=== PATIENT | female | born 1955 | race Caucasian/White ===

== ENCOUNTER → 2017-07-29 | Outpatient (CLI) | payer BC ==
--- NOTE | 2017-07-29 15:30 | US ---
EXAMINATION TYPE: US thyroid st tissue head/neck DATE OF EXAM: 07/29/2017 COMPARISON: NONE CLINICAL HISTORY: E03.9 Hypothyroidism. Hypothyroidism, patient on medication for 20 years GLAND SIZE: Right Lobe: 4.1 x 1.5 x 1.5 cm Overall Parenchyma: heterogenous Left Lobe: 3.7 x 1.3 x 1.1 cm Overall Parenchyma: heterogeneous Isthmus Thickness: 0.2 cm NODULES RIGHT: # of nodules measured on right: 0 LEFT: # of nodules measured on left: 0 ISTHMUS: # of nodules measured in the isthmus: 0 Bilateral neck scanned, lymph node left neck that is nonenlarged Heterogeneous gland, worse on the right, unable to identify a distinct nodule at this time IMPRESSION: Heterogenous thyroid parenchymal with no discrete nodule.
== END | disposition home or self-care (01) ==
LOC: RADUSWWP 14:48
PROVIDERS: ATTEND Family Medicine
DX: E03.9 Hypothyroidism, unspecified (principal); Z12.11 Encounter for screening for malignant neoplasm of colon
CPT/HCPCS: 76536; 82272

== ENCOUNTER → 2017-08-29 | Outpatient (CLI) | payer BC ==
--- NOTE | 2017-08-30 14:01 | MM ---
Reason for exam: screening (asymptomatic). Last mammogram was performed 4 years and 8 months ago. History: Patient is postmenopausal. Family history of breast cancer in grandmother at age 87. Benign excisional biopsy of the right breast, 1993. Physical Findings: A clinical breast exam by your physician is recommended on an annual basis and results should be correlated with mammographic findings. MG 3D Screening Mammo W/Cad Bilateral CC and MLO view(s) were taken. Prior study comparison: January 10, 2013, bilateral digital screening mammo w/CAD. September 28, 2010, bilateral digital screening mammo w/CAD. The breast tissue is heterogeneously dense. This may lower the sensitivity of mammography. Finding: There are typically benign round calcifications in both breasts. There is a chronic nodularity in the right breast. Asymmetric breast tissue right medial, stable since 2010. There is no discrete abnormality. ASSESSMENT: Benign, BI-RAD 2 RECOMMENDATION: Routine screening mammogram of both breasts in 1 year.
== END | disposition home or self-care (01) ==
LOC: RADMAMWWP 09:14
PROVIDERS: ATTEND Family Medicine
DX: Z12.31 Encounter for screening mammogram for malignant neoplasm of breast (principal)
CPT/HCPCS: 77063; 77067

== ENCOUNTER → 2018-12-28 | Outpatient (CLI) | payer BC ==
[2018-12-28 11:12] LABS: Basophils % (A) 1 %; Eosinophils # (A) 0.1 k/uL (0-0.7); Eosinophils % (A) 2 %; HCT 38.9 % (34.0-46.0); HGB 12.6 gm/dL (11.4-16.0); Lymphocytes # (A) 1.9 k/uL (1.0-4.8); Lymphocytes % (A) 37 %; MCH 28.4 pg (25.0-35.0); MCHC 32.4 g/dL (31.0-37.0); MCV 87.7 fL (80.0-100.0); Mean Platelet Volume 6.7; Monocytes # (A) 0.4 k/uL (0-1.0); Monocytes % (A) 8 %; Neutrophils # (A) 2.6 k/uL (1.3-7.7); Neutrophils % (A) 51 %; Platelet Count 298 k/uL (150-450); RBC 4.43 m/uL (3.80-5.40); RDW 12.8 % (11.5-15.5); WBC 5.1 k/uL (3.8-10.6)
[2018-12-28 16:35] LABS: African American GFR (CKD) 90.9 (60.0-200.0); Albumin 4.7 g/dL (3.80-4.90); Albumin/Globulin Ratio 2.47 (1.60-3.17); Anion Gap 7.1 mmol/L (4.00-12.00); BUN/Creat Ratio 17.5 Ratio (12.00-20.00); Carbon Dioxide 27.9 mmol/L (21.6-31.8); Globulin 1.9 g/dL (1.6-3.3); LDL Cholesterol,Calculated 101.6 mg/dL (0.0-131.0); Potassium 4.3 mmol/L (3.5-5.5); Total Bilirubin 0.6 mg/dL (0.2-1.2); Total Protein 6.6 g/dL (6.2-8.2); VLDL Calculation 28.4 mg/dL (5.00-40.00)
[2018-12-28 16:41] LABS: T4, Free (Free Thyroxine) 1.6 ng/dL (0.80-1.80)
== END | disposition home or self-care (01) ==
LOC: LABWHC1 10:32
PROVIDERS: ATTEND Family Medicine
DX: E06.3 Autoimmune thyroiditis (principal); E78.5 Hyperlipidemia, unspecified
CPT/HCPCS: 36415; 80053; 80061; 84439; 84443; 85025

== ENCOUNTER → 2019-02-02 | Outpatient (CLI) | payer BC ==
--- NOTE | 2019-02-05 11:33 | MM ---
Reason for exam: screening (asymptomatic). Last mammogram was performed 1 year and 5 months ago. History: Patient is postmenopausal. Family history of breast cancer in grandmother at age 87. Benign excisional biopsy of the right breast, 1993. Physical Findings: A clinical breast exam by your physician is recommended on an annual basis and results should be correlated with mammographic findings. MG 3D Screening Mammo W/Cad Bilateral CC and MLO view(s) were taken. Prior study comparison: August 29, 2017, bilateral MG 3d screening mammo w/cad. The breast tissue is heterogeneously dense. This may lower the sensitivity of mammography. There is chronic nodularity bilaterally. Posterior central circumscribed nodularity on the right was previously partially obscured. No significant changes when compared with prior studies. ASSESSMENT: Benign, BI-RAD 2 RECOMMENDATION: Routine screening mammogram of both breasts in 1 year.
== END | disposition home or self-care (01) ==
LOC: RADMAMWWP 14:43
PROVIDERS: ATTEND Family Medicine
DX: Z12.31 Encounter for screening mammogram for malignant neoplasm of breast (principal)
CPT/HCPCS: 77063; 77067

== ENCOUNTER → 2019-02-26 | Outpatient (CLI) | payer BC ==
[2019-02-26 19:47] LABS: T4, Free (Free Thyroxine) 1.3 ng/dL (0.80-1.80)
== END | disposition home or self-care (01) ==
LOC: LABWHC1 11:25
PROVIDERS: ATTEND Family Medicine
DX: E06.3 Autoimmune thyroiditis (principal)
CPT/HCPCS: 36415; 84439; 84443

== ENCOUNTER → 2019-08-30 | Outpatient (CLI) | payer BC ==
--- NOTE | 2019-08-30 15:46 | CT ---
EXAMINATION TYPE: CT angio chest DATE OF EXAM: 08/30/2019 COMPARISON: None HISTORY: Chest pain. CT DLP: 431 mGycm CONTRAST: CTA thoracic aorta with 3-D reconstruction is performed and with IV Contrast, patient injected with 6 5ml mL of Isovue 370. Contrast CTA of the thoracic aorta was performed from the lung apex through the upper abdomen. 3D re construction imaging obtained at a separate workstation. CT Chest: THORACIC AORTA: No evidence for thoracic aortic aneurysm. Mild atheromatous changes seen. There is n o evidence for dissection or periaortic collection. LUNGS: Scattered groundglass nodular areas of infiltrate noted measuring up to 1.2 cm. This may refle ct acute inflammatory process however a follow-up study in 3 months is advised. No pleural effusion o r CT evidence of interstitial lung disease. MEDIASTINUM: No evidence for mediastinal hematoma. The heart is not enlarged. No evidence for med iastinal mass or adenopathy. HILAR STRUCTURES: No evidence for mass. No hilar adenopathy is appreciated. OTHER: There is evidence of cholelithiasis. Splenic granulomas. Left-sided parapelvic cysts suspected . IMPRESSION- 1. No evidence for thoracic aortic aneurysm. 2.Scattered groundglass nodular areas of infiltrate noted measuring up to 1.2 cm. This may reflect ac ga inflammatory process however a follow-up study in 3 months is advised.
== END | disposition home or self-care (01) ==
LOC: RADCTMAIN 14:31
PROVIDERS: ATTEND Family Medicine
DX: R07.9 Chest pain, unspecified (principal)
CPT/HCPCS: 71275; Q9967

== ENCOUNTER → 2019-12-31 | Outpatient (CLI) | payer BC ==
--- NOTE | 2019-12-31 10:44 | US ---
EXAMINATION TYPE: US kidneys/renal and bladder DATE OF EXAM: 12/31/2019 COMPARISON: NONE CLINICAL HISTORY: 64-year-old female N13.39 Left Hydronephrosis. Seen on images performed at another facility. TECHNIQUE: Multiple sonographic images of the kidneys and bladder are obtained. EXAM MEASUREMENTS: Right Kidney: 9.7 x 3.9 x 3.9 cm Left Kidney: 10.6 x 4.8 x 5.1 cm Post Void Residual Volume: 0 mL Right Kidney: No hydronephrosis. Left Kidney: mild hydro seen even post void. Bladder: wnl Bilateral Jets seen: Yes Normal Post Void Residual: Yes IMPRESSION: Mild left-sided hydronephrosis. No sonographic evidence for urinary retention.
== END | disposition home or self-care (01) ==
LOC: RADUSWWP 08:05
PROVIDERS: ATTEND Family Medicine
DX: N13.30 Unspecified hydronephrosis (principal)
CPT/HCPCS: 76770

== ENCOUNTER → 2020-01-01 | Outpatient (CLI) | payer MEDICARE ==
[2020-01-01 14:14] LABS: HCT 37.2 % (34.0-46.0); HGB 12.5 gm/dL (11.4-16.0); MCH 29.8 pg (25.0-35.0); MCHC 33.6 g/dL (31.0-37.0); MCV 88.7 fL (80.0-100.0); Mean Platelet Volume 7.1; Platelet Count 290 k/uL (150-450); RBC 4.19 m/uL (3.80-5.40); RDW 12.8 % (11.5-15.5); WBC 6.8 k/uL (3.8-10.6)
== END | disposition home or self-care (01) ==
LOC: LABPAT 13:37
PROVIDERS: ATTEND Surgery Plastic and Reconstructive Surgery
DX: Z01.818 Encounter for other preprocedural examination (principal); K80.20 Calculus of gallbladder without cholecystitis without obstruction
CPT/HCPCS: 36415; 85027

== ENCOUNTER 2020-01-03 08:24 | Day surgery (SDC) | payer BC, MEDICARE ==
[2020-01-01 13:16] VITALS: BMI 26.6
--- NOTE | 2020-01-03 06:21 | P.GSHP ---
History of Present Illness H&P Date: 01/03/20 CHIEF COMPLAINT: Cholecystitis HISTORY OF PRESENT ILLNESS: The patient is a 64-year-old female who presents with history of epigastric including right upper quadrant abdominal pain. She underwent diagnostic studies for her gallbladder. Separately her clinical picture was consistent with cholecystitis. Now she presents for surgical intervention. PAST MEDICAL HISTORY: Please see list PAST SURGICAL HISTORY: Please see list MEDICATIONS: Please see list ALLERGIES: Please see list SOCIAL HISTORY: Please see list FAMILY HISTORY: Please see list REVIEW OF ORGAN SYSTEMS: CONSTITUTIONAL: No reports of fevers or chills. HEENT: Denies any troubles with the vision or hearing. ENDOCRINE: Has reports of hypothyroidism. No diabetes. RESPIRATORY: No recent pneumonias. CARDIOVASCULAR: Denies chest pain or palpitations GI: No blood in stools or constipation. MUSCULOSKELETAL: Has occasional joint pain including back pain. NEURO: No seizure disorders or headaches. No recent stroke. PSYCH: No depression or suicidal ideation. GENITOURINARY: No active blood in urine. No urinary hesitancy. HEMATOLOGIC: No personal or family history of DVTs or pulmonary emboli. SKIN: No skin cancer. PHYSICAL EXAM: VITAL SIGNS: Afebrile vital signs stable GENERAL: Well-developed pleasant in no acute distress. HEENT: No scleral icterus. Extraocular movements grossly intact. Moist buccal mucosa. NECK: Supple without lymphadenopathy. CHEST: Unlabored respirations. Equal bilateral excursions. CARDIOVASCULAR: Regular rate regular rhythm rhythm. Distal 2+ pulses. ABDOMEN: Soft, nondistended. Tender along the epigastrium and right upper quadrant. MUSCULOSKELETAL: No clubbing, cyanosis, or edema. NEURO: Cranial nerves II to XII within normal limits. No focal or lateralizing signs. PSYCH: Alert and oriented to person, place and time. SKIN: Well-perfused good skin turgor. ASSESSMENT: 1. Epigastric and right upper quadrant abdominal pain 2. Chronic cholecystitis 3. Symptomatic gallstones. PLAN: 1. Will need a robotic cholecystectomy possible open. Benefits and risks were described. 2. Heparin for DVT prophylaxis 5000 units. 3. Antibiotic prophylaxis. 4. Will need CMP Past Medical History Past Medical History: Hyperlipidemia, Thyroid Disorder Additional Past Medical History / Comment(s): GALLBLADDER DISORDER. HX PNEUMONIA-06/2019 History of Any Multi-Drug Resistant Organisms: None Reported Past Surgical History: Appendectomy Additional Past Surgical History / Comment(s): cyst removed from neck, ovary removed, FATTY CYST REMOVED FROM BREAST Past Anesthesia/Blood Transfusion Reactions: Postoperative Nausea & Vomiting (PONV) Smoking Status: Never smoker - Past Family History Mother Family Medical History: AFIB Brother(s) Family Medical History: AFIB Sister(s) Family Medical History: Diabetes Mellitus Additional Family Medical History / Comment(s): 2 sisters, both diabetic Medications and Allergies Home Medications Medication Instructions Recorded Confirmed Type Levothyroxine Sodium 100 mcg PO DAILY #30 tablet 07/12/19 01/01/20 Rx Simvastatin [Zocor] 40 mg PO HS 07/12/19 01/01/20 History Allergies Allergy/AdvReac Type Severity Reaction Status Date / Time Penicillins Allergy Rash/Hives Verified 01/01/20 13:00
[~2020-01-03 08:24] MED LIST: ACETAMINOPHEN TAB 500 MG TAB PO STA; DEXAMETHASONE SOD PHOSPHATE 10 MG/ML 1 ML VIAL IV ONE; GABAPENTIN 300 MG CAP PO STA; HEPARIN SODIUM,PORCINE 5,000 UNIT/ML 1 ML VIAL SQ ONE; HYDROmorphone 0.5 MG/0.5 ML SYRINGE IVP PRN; INDOCYANINE GREEN 25 MG VIAL IV STA; LACTATED RINGERS 1,000 ML IV SCH; LIDOCAINE 1% (10MG/ML) FOR IV START INTRADERMA PRN; ONDANSETRON 4 MG/2 ML VIAL IVP ONE
[2020-01-03] MEDS: diphenhydrAMINE 50 MG/ML 1 ML VIAL IVP ONE ×4 (08:54→09:50)
[2020-01-03 09:11] LABS: ALT 23 U/L (4-34); AST 33 U/L (14-36); African American GFR (CKD) >90 (>60 ml/min/1.73 sqM); Albumin 4.6 g/dL (3.5-5.0); Alkaline Phosphatase 69 U/L (38-126); Anion Gap 8 mmol/L; Blood Urea Nitrogen 16 mg/dL (7-17); Calcium 9.6 mg/dL (8.4-10.2); Carbon Dioxide 27 mmol/L (22-30); Chloride 106 mmol/L (98-107); Glucose 94 mg/dL (74-99); Non-African American GFR(CKD) 85 (>60 ml/min/1.73 sqM); Potassium 4.3 mmol/L (3.5-5.1); Sodium 141 mmol/L (137-145); Total Bilirubin 1.1 mg/dL (0.2-1.3); Total Protein 7.7 g/dL (6.3-8.2)
[2020-01-03] MEDS ORDERED: SUCCINYLCHOLINE CHLORIDE 100 MG/5 ML SYR IV ONE (10:22)
[2020-01-03] MEDS ORDERED: NEOSTIGMINE 1 MG/ML 10 ML VIAL ONE (10:22)
[2020-01-03] MEDS ORDERED: GLYCOPYRROLATE 0.2 MG/ML 2 ML VIAL ONE (10:22)
[2020-01-03] MEDS ORDERED: LIDOCAINE 1% INJ 10MG/ML (20 ML MDV) ONE (10:22)
[2020-01-03] MEDS ORDERED: ROCURONIUM BROMIDE 10 MG/ML 5 ML VIAL IV ONE (10:22)
[2020-01-03] MEDS ORDERED: MIDAZOLAM 2 MG/2 ML VIAL ONE (10:22)
[2020-01-03] MEDS ORDERED: PROPOFOL 10 MG/ML 20 ML VIAL IV ONE (10:22)
[2020-01-03] MEDS ORDERED: fentaNYL (PF) 50 MCG/ML 2 ML AMP ONE (10:22)
[2020-01-03] MEDS ORDERED: KETOROLAC 30 MG/ML 1 ML VIAL ONE (10:22)
[2020-01-03] MEDS ORDERED: BUPIVACAIN-EPI 0.25%-1:200,000 30 ML VIAL SQ ONE (10:56)
[2020-01-03] MEDS ORDERED: LACTATED RINGERS 1,000 ML IV ONE (10:56)
[2020-01-03 12:01] VITALS: TEMP 96.8
--- NOTE | 2020-01-03 12:08 | P.OP ---
Date of Procedure: 01/03/20 Description of Procedure: SURGEON: VALERIA ROMERO MD PREOPERATIVE DIAGNOSES: 1. Right upper quadrant abdominal pain 2. Symptomatic gallstones 3. Hyperlipidemia 4. Hypothyroidism POSTOPERATIVE DIAGNOSES: 1. Right upper quadrant abdominal pain 2. Symptomatic gallstones 3. Hyperlipidemia 4. Hypothyroidism 5. Severe intra-abdominal peritoneal adhesions upper abdomen and midline OPERATION: 1. Robotic-assisted da Yeison Xi laparoscopic cholecystectomy, multiport with FIREFLY 2. Robotic-assisted da Yeison Xi laparoscopic lysis of adhesions ESTIMATED BLOOD LOSS: 5 mL. SPECIMENS REMOVED: Gallbladder. COMPLICATIONS: None. OPERATIVE FINDINGS: 1. Severe upper upper abdominal including midline adhesions from previous surgery requiring extensive lysis of adhesions 2. Additional pericholecystic adhesions also identified and lysed INDICATIONS: The patient is a 64-year-old female who presents with cholelcystitis. Surgical intervention with a laparoscopic cholecystectomy was described. Robotic assisted laparoscopic approach was described. Benefits and risks of the pr ocedure including but not limited to bleeding, infection, injury to the biliary tree was described. Informed consent was obtained. DESCRIPTION OF PROCEDURE: Patient was brought to the operating room, placed in supine position. After general induction, the abdomen had been prepped and draped in standard sterile fashion. The robotic da Yeison XI system was primed. After a timeout protocol was performed, the patient had been prepped and draped in standard sterile fashion. The patient was injected with indocyanine green. A 5 mm 0 degrees laparoscopic trocar entry was performed along the left upper quadrant. The abdomen insufflated to 15 mmHg pressure which was tolerated well. Diagnostic laparoscopy demonstrated no injury to bowel viscera or mesentery. Dense intra-abdominal adhesions of the upper abdomen midline was identified. Trochars were placed in a delayed fashion to avoid adhesions. The liver surface was unremarkable. Next, two 8 mm robotic ports were placed along the right upper abdomen. The camera 8-mm port was maintained along the epigastrium. Another 8 mm port was placed along the left upper abdominal wall after exchanging the 5 mm port. Please note that the ports were placed at least 10 to 15 cm away from the target anatomy of the gallbladder. The robot was docked along the left lateral abdomen. The patient was repositioned in reverse Trendelenburg position. Using a grasper for arm 3, a grasper for arm 4, including hook cautery for arm 1, the robotic system was docked and primed as described. Instruments were interchanged by the data assistant including hook cautery, Bovie cautery and clip appliers. I had sat at the console. Attention was brought to the midline adhesions that were taken down using hook cautery including of the upper abdomen to obtain window of the gallbladder including right lobe of the liver. Extensive lysis of adhesions over 20 minutes was performed. The gallbladder fundus was retracted over the dome of the liver. Initial attention was brought to the infundibulum including cystic lymph node. Initial dissection was performed over the cystic lymph node at the infundibulum using hook cautery. The infundibulum was retracted laterally to expose the cystic duct away from the common bile duct. The cystic duct including the cystic artery were dissected free from its surrounding tissue. FIREFLY was used to identify the cystic artery and cystic structures. A critical view of safety was obtained. Large PLASTIC clips were used throughout the entire case. Using a clip motor overhauler, 2 clips were placed along the cystic duct at the junction of the infundibulum away from the common bile duct. The cystic duct was divided between clips. Next, the cystic artery was similarly clipped and cauterized. Electro-Bovie cautery was used to remove the gallbladder from the hepatic fossa. Hemostasis was checked and found to be adequate. The robot was undocked. I re-scrubbed into the case. Using a 10 mm Endo Catch bag via the left upper quadrant incision, the specimen was removed from the abdominal cavity. All pneumoperitoneum instruments were evacuated from the abdominal cavity. The incisions were reapproximated using 4-0 Monocryl in an interrupted subcuticular fashion. Fascial defects were less than 8 mm in size. Please note along the trocar sites, local anesthetic was placed as a field block prior to insertion of all instruments. Liquid glue was applied to the skin. At the end of the procedure needle, sponge, and instrument count had been verified correct by the surgical appliance fitter. The patient was transferred to postanesthesia care unit in stable condition. Intraoperative films were shared with the patient's family who were pleased with the level of care. Plan - Discharge Summary Discharge Rx Participant: Yes New Discharge Prescriptions: New Ibuprofen [Motrin] 600 mg PO Q8HR PRN #30 tab PRN Reason: Pain Acetaminophen Tab [Tylenol Tab] 500 mg PO Q6H PRN #30 tablet PRN Reason: Pain Continue Simvastatin [Zocor] 40 mg PO HS Levothyroxine Sodium 100 mcg PO DAILY #30 tablet Discharge Medication List Levothyroxine Sodium 100 mcg PO DAILY #30 tablet 07/12/19 [Rx] Simvastatin [Zocor] 40 mg PO HS 07/12/19 [History] Acetaminophen Tab [Tylenol Tab] 500 mg PO Q6H PRN #30 tablet 01/03/20 [Rx] Ibuprofen [Motrin] 600 mg PO Q8HR PRN #30 tab 01/03/20 [Rx] Follow up Appointment(s)/Referral(s): Valeria Romero MD [STAFF PHYSICIAN] - 01/08/20 Patient Instructions/Handouts: Laparoscopic Cholecystectomy (DC) Activity/Diet/Wound Care/Special Instructions: No lifting over 10 pounds in 2 weeks until January 16November shower. No bath tub soaks for two weeks until January 16 Diet as tolerated. No driving while on narcotics. Use Tylenol and ibuprofen or Aleve scheduled for the next 24-48 hours for best pain relief. Use ice along incisions for the today to prevent swelling. Discharge Disposition: HOME SELF-CARE
[2020-01-03 13:41] VITALS: BP 106/66; PULSE 77; RESP 16
== END 2020-01-03 13:56 | disposition home or self-care (01) ==
LOC: OR 08:24
PROVIDERS: ATTEND Surgery Plastic and Reconstructive Surgery
DX: K80.10 Calculus of gallbladder with chronic cholecystitis without obstruction (principal); K66.0 Peritoneal adhesions (postprocedural) (postinfection); E78.5 Hyperlipidemia, unspecified; E03.9 Hypothyroidism, unspecified; Z88.0 Allergy status to penicillin; Z79.890 Hormone replacement therapy; Z79.899 Other long term (current) drug therapy; Z98.890 Other specified postprocedural states; Z87.01 Personal history of pneumonia (recurrent); Z90.49 Acquired absence of other specified parts of digestive tract; Z82.49 Family history of ischemic heart disease and other diseases of the circulatory system; Z83.3 Family history of diabetes mellitus
CPT/HCPCS: 88304; 80053; 47562; J2250; J1200; J1644; J1100; J2710; J0690; J2405; J2001; J3010; J1885; J0330; J2704

== ENCOUNTER → 2020-02-26 | Outpatient (CLI) | payer BC ==
--- NOTE | 2020-02-26 12:19 | XR ---
EXAMINATION TYPE: XR IVP DATE OF EXAM: 02/26/2020 COMPARISON: CTA chest August 30, 2019. Renal ultrasound December 31, 2019 HISTORY: Abnormal ultrasound, left-sided hydronephrosis TECHNIQUE: Following intravenous administration of 100 cc Isovue-300, multiple spot images are obtain ed. The preliminary film of the abdomen reveals scattered calcifications throughout the liver and spleen consistent with product of old granulomatous disease. Calcifications in the left pelvis presumed phle boliths. No definite nephrolithiasis is seen. Following intravenous administration of contrast material, sequential films of the abdomen were obtai bradly. There is prompt and symmetrical excretion of the contrast by both kidneys which demonstrate nor mal size and configuration. The collecting systems and visualized portions of the ureters reveal no abnormality. There is no mass or obstruction visualized. There is splaying of the pelvis is on the l eft felt to be on basis of parapelvic cysts mimicking hydronephrosis when correlating this study with recent ultrasound and CT chest study. There is gradual accumulation of contrast material in the uri nary bladder showing no gross abnormality. The post-voiding film shows minimal residual contrast in the collecting systems and urinary bladder. IMPRESSION: No hydronephrosis noted bilaterally. Parapelvic cysts in the left kidney mimic hydronephr osis on recent ultrasound.
== END | disposition home or self-care (01) ==
LOC: RADFLMAIN 09:02
PROVIDERS: ATTEND Urology
DX: N28.1 Cyst of kidney, acquired (principal); N13.30 Unspecified hydronephrosis; Z88.0 Allergy status to penicillin
CPT/HCPCS: 74400; Q9967

== ENCOUNTER → 2020-06-04 | Outpatient (CLI) | payer MEDICARE ==
--- NOTE | 2020-06-06 09:12 | MM ---
Reason for exam: screening (asymptomatic). Last mammogram was performed 1 year and 4 months ago. History: Patient is postmenopausal. Family history of breast cancer in grandmother at age 87. Benign excisional biopsy of the right breast, 1993. Physical Findings: A clinical breast exam by your physician is recommended on an annual basis and results should be correlated with mammographic findings. MG 3D Screening Mammo W/Cad Bilateral CC and MLO view(s) were taken. Prior study comparison: February 02, 2019, bilateral MG 3d screening mammo w/cad. August 29, 2017, bilateral MG 3d screening mammo w/cad. The breast tissue is heterogeneously dense. This may lower the sensitivity of mammography. No significant changes when compared with prior studies. ASSESSMENT: Benign, BI-RAD 2 RECOMMENDATION: Routine screening mammogram of both breasts in 1 year.
== END | disposition home or self-care (01) ==
LOC: RADMAMWWP 07:48
PROVIDERS: ATTEND Nurse Practitioner Family
DX: Z12.31 Encounter for screening mammogram for malignant neoplasm of breast (principal)
CPT/HCPCS: 77063; 77067

== ENCOUNTER → 2021-08-10 | Outpatient (CLI) | payer MEDICARE ==
--- NOTE | 2021-08-11 10:04 | MM ---
Reason for exam: screening (asymptomatic). Last mammogram was performed 1 year and 2 months ago. History: Patient is postmenopausal. Family history of breast cancer in grandmother at age 87. Benign excisional biopsy of the right breast, 1993. Physical Findings: A clinical breast exam by your physician is recommended on an annual basis and results should be correlated with mammographic findings. MG 3D Screening Mammo W/Cad Bilateral CC and MLO view(s) were taken. Prior study comparison: June 04, 2020, bilateral MG 3d screening mammo w/cad. February 02, 2019, bilateral MG 3d screening mammo w/cad. The breast tissue is heterogeneously dense. This may lower the sensitivity of mammography. There is no discrete abnormality. No significant changes when compared with prior studies. ASSESSMENT: Benign, BI-RAD 2 RECOMMENDATION: Routine screening mammogram of both breasts in 1 year.
== END | disposition home or self-care (01) ==
LOC: RADMAMWWP 07:38
PROVIDERS: ATTEND Family Medicine
DX: Z12.31 Encounter for screening mammogram for malignant neoplasm of breast (principal); Z78.0 Asymptomatic menopausal state; Z80.3 Family history of malignant neoplasm of breast
CPT/HCPCS: 77063; 77067

== ENCOUNTER → 2021-11-23 | Outpatient (CLI) | payer MEDICARE ==
[2021-11-23 14:48] LABS: Chol/HDL Ratio 2.31 Ratio; LDL Cholesterol,Calculated 47.5 mg/dL (0.0-131.0)
== END | disposition home or self-care (01) ==
LOC: LABWHC1 09:19
PROVIDERS: ATTEND Family Medicine
DX: E78.49 Other hyperlipidemia (principal)
CPT/HCPCS: 36415; 80061

== ENCOUNTER → 2022-08-11 | Outpatient (CLI) | payer MEDICARE ==
--- NOTE | 2022-08-12 21:29 | MM ---
Reason for Exam: Screening (asymptomatic). Last screening mammogram was performed 12 month(s) ago. Patient History: Menarche at age 12. First Full-Term at age 23. Left ovary removed at age 31. Postmenopausal. 1993, Benign Excisional Biopsy on the right side. Maternal grandmother had breast cancer, age 87. Risk Values: Earnestine 5 year model risk: 1.8%. NCI Lifetime model risk: 6.1%. Prior Study Comparison: 02/02/2019 Bilateral Screening Mammogram, [facility]. 06/04/2020 Bilateral Screening Mammogram, [facility]. 08/10/2021 Bilateral Screening Mammogram, [facility]. Tissue Density: The breast tissue is heterogeneously dense. This may lower the sensitivity of mammography. Findings: Analyzed By CAD. There is chronic bilateral nodularity. Unchanged asymmetric density superior right MLO view. Not only is this unchanged back to 2018, it also does not persist on 3-D images. Findings compatible with superimposition shadow. No significant change from prior exams. Overall Assessment: Benign, BI-RAD 2 Management: Screening Mammogram of both breasts in 1 year. 1. Patient should continue monthly self breast exams. 2. A clinical breast exam by your physician is recommended on an annual basis. 3. This exam should not preclude additional follow-up of suspicious palpable abnormalities. Electronically signed and approved by: Claudia Roman M.D. Radiologist
== END | disposition home or self-care (01) ==
LOC: RADMAMWWP 08:51
PROVIDERS: ATTEND Family Medicine
DX: Z12.31 Encounter for screening mammogram for malignant neoplasm of breast (principal); Z78.0 Asymptomatic menopausal state; Z80.3 Family history of malignant neoplasm of breast; Z98.890 Other specified postprocedural states
CPT/HCPCS: 77063; 77067

== ENCOUNTER → 2023-08-12 | Outpatient (CLI) | payer MEDICARE ==
--- NOTE | 2023-08-12 16:13 | MM ---
Reason for Exam: Screening (asymptomatic). Last screening mammogram was performed 12 month(s) ago. Patient History: Menarche at age 12. First Full-Term at age 23. Left ovary removed at age 31. Postmenopausal. 1993, Benign Excisional Biopsy on the right side. Maternal grandmother had breast cancer, age 87. Risk Values: Earnestine 5 year model risk: 1.8%. NCI Lifetime model risk: 5.9%. Prior Study Comparison: 08/29/2017 Bilateral Screening Mammogram, [facility]. 02/02/2019 Bilateral Screening Mammogram, [facility]. 06/04/2020 Bilateral Screening Mammogram, [facility]. 08/10/2021 Bilateral Screening Mammogram, [facility]. 08/11/2022 Bilateral MG 3D screening mammo w/cad, [facility]. Tissue Density: The breast tissue is heterogeneously dense. This may lower the sensitivity of mammography. Findings: Analyzed By CAD. There is no suspicious group of microcalcifications or new suspicious mass. Overall Assessment: Negative, BI-RAD 1 Management: Screening Mammogram of both breasts in [address] [facility] will attempt to contact patient to return for supplemental views and ultrasound if indicated. Patient should continue monthly self-breast exams. A clinical breast exam by your physician is recommended on an annual basis. This exam should not preclude additional follow-up of suspicious palpable abnormalities. Note on Earnestine scores and lifetime risk: 1. A Earnestine score greater than 3% is considered moderate risk. If this is the case, consider specialist referral to assess eligibility for a risk reducing agent. 2. If overall lifetime risk for the development of breast cancer is 20% or higher, the patient may qualify for future screening with alternating mammogram and breast MRI. Electronically signed and approved by: Jaden Velasco DO
== END | disposition home or self-care (01) ==
LOC: RADMAMWWP 08:06
PROVIDERS: ATTEND Family Medicine
DX: Z12.31 Encounter for screening mammogram for malignant neoplasm of breast (principal); Z78.0 Asymptomatic menopausal state; Z80.3 Family history of malignant neoplasm of breast
CPT/HCPCS: 77063; 77067

== ENCOUNTER → 2024-08-07 | Outpatient (CLI) | payer MEDICARE ==
--- NOTE | 2024-08-07 15:33 | MM ---
Reason for Exam: Screening (asymptomatic). Last screening mammogram was performed 12 month(s) ago. Patient History: Menarche at age 12. First Full-Term at age 23. Left ovary removed at age 31. Postmenopausal. 1993, Benign Excisional Biopsy on the right side. Maternal grandmother had breast cancer, age 87. Risk Values: Earnestine 5 year model risk: 1.8%. NCI Lifetime model risk: 5.6%. Prior Study Comparison: 08/10/2021 Bilateral Screening Mammogram, [facility]. 08/11/2022 Bilateral MG 3D screening mammo w/cad, [facility]. 08/12/2023 Bilateral MG 3D screening mammo w/cad, [facility]. Tissue Density: The breasts are heterogeneously dense, which may obscure small masses. Findings: Analyzed By CAD. Medial and lateral asymmetric density is on the right CC view remain unchanged. There is no suspicious group of microcalcifications or new suspicious mass in either breast. Overall Assessment: Benign, BI-RAD 2 Management: Screening Mammogram of both breasts in 1 year. . Patient should continue monthly self-breast exams. A clinical breast exam by your physician is recommended on an annual basis. This exam should not preclude additional follow-up of suspicious palpable abnormalities. Note on Earnestine scores and lifetime risk: 1. A Earnestine score greater than 3% is considered moderate risk. If this is the case, consider specialist referral to assess eligibility for a risk reducing agent. 2. If overall lifetime risk for the development of breast cancer is 20% or higher, the patient may qualify for future screening with alternating mammogram and breast MRI. [facility], , 08/07/2024 3:30 PM. Electronically signed and approved by: Claudia Roman M.D. Radiologist
== END | disposition home or self-care (01) ==
LOC: RADMAMWWP 14:09
PROVIDERS: ATTEND Family Medicine
DX: Z12.31 Encounter for screening mammogram for malignant neoplasm of breast (principal); Z90.721 Acquired absence of ovaries, unilateral; Z78.0 Asymptomatic menopausal state; Z80.3 Family history of malignant neoplasm of breast; R92.333 Mammographic heterogeneous density, bilateral breasts
CPT/HCPCS: 77063; 77067

== ENCOUNTER 2024-10-28 23:52 | Emergency (ER) | payer MEDICARE ==
[2024-10-29] VITALS: RESP 18; TEMP 97.8
--- NOTE | 2024-10-29 00:34 | ED ---
Chest Pain HPI <Hamilton He - Last Filed: 10/29/24 02:13> - General Source: patient Mode of arrival: ambulatory Limitations: no limitations <Marybel Marion - Last Filed: 10/29/24 23:09> - General Chief Complaint: Chest Pain Stated Complaint: abd pain,burning in chest Time Seen by Provider: 10/29/24 00:01 - History of Present Illness Initial Comments: 69-year-old female with past medical history of coronary artery disease, family history significant for A-fib in her mother and brother, and hypothyroidism who presents to the emergency department with her with chief complaint of chest pain. Patient states her pain is centralized with some radiation to both arms. Patient reports her chest pain is intermittent. Patient believes it is acid reflux, but became concerned when her Mylanta did not work. Patient denies any smoking history, alcohol use or recreational drug use. Patient denies any shortness of breath, fever, chills, headaches, urinary or bowel complaints. (MarionMarybel) - Related Data Home Medications Medication Instructions Recorded Confirmed Simvastatin [Zocor] 40 mg PO HS 07/12/19 01/03/20 Previous Rx's Medication Instructions Recorded Levothyroxine Sodium 100 mcg PO DAILY #30 tablet 07/12/19 Acetaminophen Tab [Tylenol Tab] 500 mg PO Q6H PRN #30 tablet 01/03/20 Ibuprofen [Motrin] 600 mg PO Q8HR PRN #30 tab 01/03/20 Allergies Allergy/AdvReac Type Severity Reaction Status Date / Time Penicillins Allergy Rash/Hives Verified 10/28/24 23:57 Review of Systems ROS Other: All systems not noted in ROS Statement are negative. <Hamilton He - Last Filed: 10/29/24 02:13> ROS Other: All systems not noted in ROS Statement are negative. Constitutional: Denies: fever, chills Eyes: Denies: eye pain Respiratory: Denies: cough, dyspnea Cardiovascular: Reports: chest pain. Denies: palpitations, dyspnea on exertion, orthopnea, syncope Endocrine: Denies: fatigue Gastrointestinal: Denies: abdominal pain, nausea, vomiting, diarrhea, constipation Genitourinary: Denies: urgency, dysuria Musculoskeletal: Denies: back pain Skin: Denies: rash, lesions Neurological: Denies: headache, weakness, numbness, paresthesias <Marybel Marion Last Filed: 10/29/24 23:09> ROS Statement: Those systems with pertinent positive or pertinent negative responses have been documented in the HPI. Past Medical History Past Medical History: Hyperlipidemia, Pneumonia, Thyroid Disorder Additional Past Medical History / Comment(s): pneumonia History of Any Multi-Drug Resistant Organisms: None Reported Past Surgical History: Cholecystectomy Additional Past Surgical History / Comment(s): cyst removed from neck, ovary removed Past Anesthesia/Blood Transfusion Reactions: No Reported Reaction Past Psychological History: No Psychological Hx Reported Smoking Status: Never smoker Past Alcohol Use History: None Reported Past Drug Use History: None Reported - Past Family History Mother Family Medical History: AFIB Brother(s) Family Medical History: AFIB Sister(s) Family Medical History: Diabetes Mellitus Additional Family Medical History / Comment(s): 2 sisters, both diabetic <Marybel Marion Last Filed: 10/29/24 23:09> General Exam Limitations: no limitations General appearance: alert, in no apparent distress Eye exam: Present: normal appearance, PERRL, EOMI Pupils: Present: normal accommodation Respiratory exam: Present: normal lung sounds bilaterally. Absent: respiratory distress, wheezes, rales, rhonchi Cardiovascular Exam: Present: regular rate, normal rhythm GI/Abdominal exam: Present: soft. Absent: distended, tenderness Neurological exam: Present: alert, oriented X3, CN II-XII intact Psychiatric exam: Present: normal affect, normal mood Skin exam: Present: warm, dry, intact <Marybel Marion Last Filed: 10/29/24 23:09> Course Vital Signs 10/28/24 10/29/24 23:57 02:27 Temperature 97.8 F Pulse Rate 90 68 Respiratory 18 18 Rate Blood Pressure 171/87 132/80 O2 Sat by Pulse 100 98 Oximetry Chest Pain MDM <Marybel Marion Last Filed: 10/29/24 23:09> - MDM Was pt. sent in by a medical professional or institution (, PA, CLINICAL REIMBURSEMENT SPECIALIST, urgent care, hospital, or assisted...) When possible be specific @ -No Did you speak to anyone other than the patient for history (EMS, parent, family, police, friend...)? What history was obtained from this source @ -No Did you review nursing and triage notes (agree or disagree)? Why? @ -I reviewed and agree with nursing and triage notes Were old charts reviewed (outside hosp., previous admission, EMS record, old EKG, old radiological studies, urgent care reports/EKG's, assisted records)? Report findings @ -No old charts were reviewed Differential Diagnosis? @ -Differential Chest Pain: Stable Angina, Unstable Angina, STEMI, NSTEMI Aortic Dissection, Pneumothorax, Musculoskeletal, Esophageal Spasm GERD, Cholecystitis, Pancreatitis, Zoster, this is not meant to be an all-inclusive list. EKG interpreted by me (3pts min.). @ -EKG shows sinus rhythm with ventricular rate of 75 bpm, QRS of 90 ms, QTc of 423 ms, no ST-T wave changes suggestive of ischemia. X-rays interpreted by me (1pt min.). @ -No acute cardiopulmonary process. CT interpreted by me (1pt min.). @ -None done U/S interpreted by me (1pt. min.). @ -None done What testing was considered but not performed or refused? (CT, X-rays, U/S, labs)? Why? @ -None What meds were considered but not given or refused? Why? @ -None Did you discuss the management of the patient with other professionals (professionals i.e. , PA, CLINICAL REIMBURSEMENT SPECIALIST, lab, RT, psych nurse, social sciences chair, safety risk lead, teacher, account officer, case management director)? Give summary @ -Case was discussed with ED attending physician Dr. He. Was smoking cessation discussed for >3mins.? @ -No Was critical care preformed (if so, how long)? @ -No Were there social determinants of health that impacted care today? How? (Homelessness, low income, unemployed, alcoholism, drug addiction, transportation, low edu. Level, literacy, decrease access to med. care, fpc, rehab)? @ -No Was there de-escalation of care discussed even if they declined (Discuss DNR or withdrawal of care, Hospice)? DNR status @ -No What co-morbidities impacted this encounter? (DM, HTN, Smoking, COPD, CAD, Cancer, CVA, ARF, Chemo, Hep., AIDS, mental health diagnosis, sleep apnea, morbid obesity)? @ -None Was patient admitted / discharged? Hospital course, mention meds given and route, prescriptions, significant lab abnormalities, going to OR and other pertinent info. @ -Patient was discharged home with self-care. Undiagnosed new problem with uncertain prognosis? @ -No Drug Therapy requiring intensive monitoring for toxicity (Heparin, Nitro, Insulin, Cardizem)? @ -No Were any procedures done? @ -No Diagnosis/symptom? @ -Atypical chest pain Acute, or Chronic, or Acute on Chronic? @ -Acute Uncomplicated (without systemic symptoms) or Complicated (systemic symptoms)? @ -Default Side effects of treatment? @ -No Exacerbation, Progression, or Severe Exacerbation? @ -No Poses a threat to life or bodily function? How? (Chest pain, [place], NH, pneumonia, PE, COPD, DKA, ARF, appy, cholecystitis, CVA, Diverticulitis, Homicidal, Suicidal, threat to staff... and all critical care pts) @ -No (Marybel Marion) Disposition Is patient prescribed a controlled substance at d/c from ED?: No Time of Disposition: 02:00 <Hamilton He - Last Filed: 10/29/24 02:13> Is patient prescribed a controlled substance at d/c from ED?: No <Marybel Marion - Last Filed: 10/29/24 23:09> Clinical Impression: Atypical chest pain, Chest pain Disposition: HOME SELF-CARE Condition: Good Instructions (If sedation given, give patient instructions): Chest Pain (ED) Referrals: Khoi Gant DO [Primary Care Provider] - 1-2 days
[2024-10-29 01:05] LABS: HCT 35.6 % (37.2-46.3); HGB 12.1 g/dL (12.0-15.0); MCH 29.2 pg (27.0-32.0); Mean Platelet Volume 9.1 fL (9.5-12.2); Platelet Count 251 10*3/uL (140-440); RBC 4.14 10*6/uL (4.10-5.20); RDW 12.5 % (11.5-14.5)
--- NOTE | 2024-10-29 01:17 | XR ---
EXAM: XR Chest, 2 Views CLINICAL HISTORY: ITS.REASON XR Reason: Chest Pain TECHNIQUE: Frontal and lateral views of the chest. COMPARISON: No relevant prior studies available. FINDINGS: Lungs: No consolidation or mass. Pleural space: No effusion. Heart: No cardiomegaly. Bones/joints: No acute findings. IMPRESSION: No acute cardiopulmonary process.
[2024-10-29 01:22] LABS: INR 0.9 (<1.2); Partial Thromboplastin Time 21.1 sec (22.0-30.0); Prothrombin Time 10.5 sec (10.0-12.5)
[2024-10-29 01:27] LABS: ALT 18 U/L (4-34); AST 25 U/L (14-36); African American GFR (CKD) 74 (>60 ml/min/1.73 sqM); Albumin 4.3 g/dL (3.5-5.0); Alkaline Phosphatase 63 U/L (38-126); Anion Gap 7 mmol/L; Blood Urea Nitrogen 17 mg/dL (7-17); Calcium 10.1 mg/dL (8.4-10.2); Carbon Dioxide 28 mmol/L (22-30); Chloride 104 mmol/L (98-107); Glucose 92 mg/dL (74-99); Magnesium 2.1 mg/dL (1.6-2.3); Non-African American GFR(CKD) 64 (>60 ml/min/1.73 sqM); Sodium 139 mmol/L (137-145); Total Bilirubin 0.8 mg/dL (0.2-1.3); Total Protein 6.9 g/dL (6.3-8.2)
[2024-10-29 02:01] LABS: Basophils # (A) 0.06 10*3/uL (0.00-0.10); Eosinophils # (A) 0.14 10*3/uL (0.04-0.35); Eosinophils % (A) 2.3 %; Lymphocytes # (A) 2.43 10*3/uL (0.90-5.00); Lymphocytes % (A) 39.5 %; Monocytes % (A) 9.8 %; Neutrophils % (A) 47.1 %
[2024-10-29 02:31] VITALS: BP 132/80; PULSE 68
== END 2024-10-29 02:34 | disposition home or self-care (01) ==
LOC: EC 23:52
DX: R07.89 Other chest pain (principal); Z82.49 Family history of ischemic heart disease and other diseases of the circulatory system; Z88.0 Allergy status to penicillin
CPT/HCPCS: 36415; 71046; 80053; 83735; 84484; 85025; 85379; 85610; 85730; 93005; 99285